=== PATIENT | female | born 1985 | race Caucasian/White ===

== ENCOUNTER → 2020-09-21 | Outpatient (CLI) | payer BC | END | disposition home or self-care (01) | LOC: LABWHC1 15:25 | PROVIDERS: ATTEND Family Medicine | DX: Z20.822 Contact with and (suspected) exposure to COVID-19 (principal) | CPT/HCPCS: U0003; C9803 ==

== ENCOUNTER → 2023-01-14 | Outpatient (CLI) | payer BC ==
--- NOTE | 2023-01-14 21:04 | MR ---
EXAMINATION TYPE: MR cervical spine wo con DATE OF EXAM: 01/14/2023 INDICATION: Patient age: Female; 37 years old; Reason for study: M47.22 CERVICAL SPONDYLOSIS WITH RADICULOPATHY; PHH. Neck pain and numbness into dorothy th sides but left side worse, weakness COMPARISON: 12/26/2022. TECHNIQUE: Multi planar, multi sequence imaging was performed utilizing: T1-weighted, T2-weighted, an d turbo inversion recovery imaging of the cervical spine. IV Contrast: cc none FINDINGS: Alignment: The cervical vertebral bodies have preserved heights. Alignment is within normal limits gi orly patient positioning. Bones: Bone signal is within normal limits. No abnormal bone marrow edema on inversion recovery seque nces. Degeneration changes worse at C4-C5 and C5-C6. Cord: Focus of abnormal cord signal within the right spinal cord just off midline at the level of C5 measuring 1 x 1 mm and extending approximately 3 mm . The remainder of the spinal cord is unremarkabl e with regards to their signal intensity and morphology. Discs: Multilevel disc desiccation is present. C2-C3: No significant disc pathology. The spinal canal is patent. No neural foraminal stenosis. C3-C4: No significant disc pathology. The spinal canal is patent. No neural foraminal stenosis. C4-C5: A disc osteophyte complex is present with mild to moderate spinal canal stenosis. Bilateral f acet and uncovertebral joint arthropathy are present with moderate bilateral neural foraminal stenosi s. C5-C6: A disc osteophyte complex is present with moderate to severe spinal canal stenosis. Bilateral facet and uncovertebral joint arthropathy are present with moderate to severe bilateral neural toney inal stenosis. C6-C7: No significant disc pathology. The spinal canal is patent. No neural foraminal stenosis. C7-T1: No significant disc pathology. The spinal canal is patent. No neural foraminal stenosis. IMPRESSION: 1. C5-C6 moderate to severe spinal canal stenosis with moderate to severe bilateral neural foraminal stenosis. Additionally moderate bilateral neural foraminal stenosis at C4-C5. 2. Focus of abnormal cord signal within the right aspect of the cord just off midline at the level o f C5. Correlate for demyelination. No additional areas of abnormal cord signal. 3. Multilevel disc degeneration with associated osteoarthritic changes worse at C4-C5 and C5-C6.
== END | disposition home or self-care (01) ==
LOC: RADMRIMAIN 19:03
PROVIDERS: ATTEND Orthopaedic Surgery
DX: M47.22 Other spondylosis with radiculopathy, cervical region (principal); M50.121 Cervical disc disorder at C4-C5 level with radiculopathy; M99.71 Connective tissue and disc stenosis of intervertebral foramina of cervical region
CPT/HCPCS: 72141

== ENCOUNTER → 2023-03-02 | Outpatient (CLI) | payer BC | END | disposition home or self-care (01) | LOC: LABPAT 09:41 | PROVIDERS: ATTEND Orthopaedic Surgery | DX: Z01.812 Encounter for preprocedural laboratory examination (principal); Z22.322 Carrier or suspected carrier of Methicillin resistant Staphylococcus aureus; M50.20 Other cervical disc displacement, unspecified cervical region | CPT/HCPCS: 87070 ==

== ENCOUNTER 2023-03-10 06:31 | Day surgery (SDC) | payer BC ==
[~2023-03-10 06:31] MED LIST: ACETAMINOPHEN TAB 500 MG TAB PO PRN; DEXAMETHASONE SOD PHOSPHATE 4 MG/ML 1 ML VIAL IV ONE; GABAPENTIN 300 MG CAP PO PRN; ONDANSETRON 4 MG/2 ML VIAL IVP ONE; ONDANSETRON 4 MG/2 ML VIAL IVP PRN; TRANEXAMIC 1,000 MG/100ML-NACL 1,000 MG in SALINE 1 100ML.BAG IVPB PRN
--- NOTE | 2023-03-10 06:51 | P.HPOR ---
History of Present Illness H&P Date: 03/04/23 .D:Date: 03/04/23 : 04:33pm .T:Title: *[facility]... COPY... Date of :[birth year] R14 Allergies: Age: 37 year Height: 5'4" Weight: 151 lbs BP:/ BMI: 25.92 kg/m2 Occupation: senior business development manager [employer] VAS: 7 CHIEF COMPLAINT: Neck pain DOI: Chronic DOS: N/A Duration of current treatment regiment: 2 to 3 years HISTORY : Xrays New xrays taken in office Trauma or injury No Work-Related No Pain description Aching, burning, increasing Location Diffuse Patient notes that their pain radiates to bilateral upper extremities Activity Modification Yes Hand Dominance Right TREATMENTS COMPLETED: 6 weeks of PT completed? Month and Year of last PT date? Yes How many sessions? 1 Did it help? yes Physician directed home exercise completed? Yes, with mild relief Medications None Alternative interventions Chiropractic:Yes Massage therapy:Yes R.I.C.E:Yes Brace:No Injections No RFA: No SUBJECTIVE: Ms. Finn returns to the office on today for a pre-operative appointment. Patient continues to report experiencing burning and ache-like cervicalpain that has been ongoing since 2013 with no known injury or trauma to indicate an exact onset of their symptoms. In addition to their cervicalpain, they also continue to report that it radiates into the bilateral upper extremities, associatedwith numbness and tingling. The patient states that the left arm sym ptoms are worse than the right. Overall the patient has seen a progressive increase in symptoms since their onset. Ms. Finn symptoms are exacerbated with over head activities or movement or with quick ambulation of the neck, and due to this they note that it is increasingly difficult to complete many of their daily tasks. Patient is having moderate sleep disturbances as well due to their ongoing pain and associated symptoms. Regarding treatments, the patient has previously trialed field care manager, massage therapy, physical therapy, and medication. The patient experienced some relief from field care manager, massage therapy, and physical therapy, but no relief with medication. Patient denies trialing any other modalities at this time. The patient is currently taking Tylenol without resolution of symptoms. Otherwise the patient denies any f/c/sob/cp, no incision concerns, no bladder or bowel retention/incontinence, no perineal numbness/tingling, and ambulates independently. HPI: Ms. Finn presents via phone call on 01/22/23 regarding her MRI of her c spine and her neck pain. She states she continues to have progressive sx down her arms in to her hands and into her middle and ring finger on both sides. She feels it down her arms and shoulders. It gives her HOLCOMB severely and neck pain as well. She feels a pressure in her neck that just does not go away. She denies any bowel or bladder issues. States no gait disturbances but difficulty with strength in her UE b/l. She has a active job and moves 60lbs regularly and it has become more difficult due to the weakness she feels in her arms. She denies any f/c/sob/cp at this time. Ms. Finn presents to the office on 12/26/22 for an evaluation of their chronic neck pain. Patient reports experiencing burning and ache-like cervicalpain that has been ongoing since 2013 with no known injury or trauma to indicate an exact onset of their symptoms. In addition to their cervicalpain, they do report that it radiates into the bilateral upper extremities, asso ciatedwith numbness and tingling. The patient states that the left arm symptoms are worse than the right. Overall the patient has seen a progressive increase in symptoms since their onset. Ms. Finn symptoms are exacerbated with over head activities or movement or with quick ambulation of the neck, and due to this they note that it is increasingly difficult to complete many of their daily task s. Patient is having mild sleep disturbances as well due to their ongoing pain and associated symptoms. Regarding treatments, the patient has previously trialed field care manager, massage therapy, physical therapy, and medication. The patient experienced some relief from field care manager, massage therapy, and physical therapy, but no relief with medication. Patient denies trialing any other modalities at this time. The patient is not taking any medication for her pain at this time. Otherwise the patient denies any f/c/sob/cp, no incision concerns, no bladder or bowel retention/incontinence, no perineal numbness/tingling, and ambulates independently. The patients' past social, medical, family, surgical history, as well as review of systems, have been reviewed. Please refer to the Neurosurgery History and Physical form that has been scanned in to our electronic medical record system. 14 points review of systems completed and as stated in HPI, all other systems reviewed are negative. Social History: E8Elggxra:none P3 Alcohol:none Family History: H3Oxblzv: alive P2 Father: alive Sibling(s): alive Family History: lung cancer Past Medical History: ANXIETY/DEPRESSION Surgical / Procedural History: LUMPECTOMY RIGHT BREAST Current Medications: P1Rx: ALPRAZolam 0.5 mg tablet Ref: 0 Rx: escitalopram 20 mg tablet Ref: 0 Rx: gabapentin 300 mg capsule Ref: 0 Rx: methylPREDNISolone 4 mg tablets in a dose pack Ref: 0 P1 PHYSICAL EXAMINATION: General:Awake, alert, appropriate for age, in no acute distress. HEENT:No unusual neck masses around region of lateral neck triangle, thyroid, supraclavicular groove Heart:Regular rate and rhythm, normal S1, S2 and no murmur/gallop. Lungs:Clear to auscultation bilaterally with no use of accessory muscles. Extremities:Skin warm and dry without acute lesions, coloration, temperature, skin intact, no tenderness or erythema Integument: Hairy patches: ABSENT Dorsal skin dimples: ABSENT Cafe au lait spots: ABSENT Palpation: Please see Pain drawing on Intake sheet for further detail. Midline spinal tenderness: No E6 Cervical Tenderness: No E6 Paralumbar tenderness: No E6 Parathoracic tenderness: No E6 Buttocks tenderness: No E6 Sacroiliac Tenderness:No POSTURAL and MUSCULO-SKELETAL EVALUATION: Coronal Balance: NEUTRAL Recumbent testing: Patient is able to lay flat on back Sagittal Balance: NEUTRAL Shoulder Profile: LEVEL Pelvic Girdle: LEVEL Neck ROM: UNRESTRICTED Lumbar ROM: UNRESTRICTED Shoulder ROM: Symmetrical Hip ROM: Symmetrical Knee ROM: Symmetrical Hands: Normal appearance, symmetrical Feet: Normal appearance, Symmetrical VASCULAR STATUS : LEFT RIGHT Wrist Pulses INTACT INTACT Pedal Pulses (Dors. pedis & post.tibialis) INTACT INTACT Color NORMAL NORMAL Edema Absent Absent NEUROLOGIC EXAMINATION: Mental Status:Awake and alert, fully oriented, with normal attention, concent ration and memory, and fluent, appropriate speech. Cranial Nerves: I: Olfactory not tested. II: Visual acuity normal, no visual field deficit noted with confrontation. III,IV: Normal pupillary reflexes & intact extraocular movements without nystagmus. V,: Intact symmetrical facial sensation. VII: Intact symmetrical facial motor movement VIII: Hearing intact. IX,X: Intact gag, swallow, & normal voice. XI: Sternocleidomastoid, trapezius function intact. XII: Tongue midline with normal movements. L'hermitte's Sign: Negative / absent Spurling'Sign: Absent bilaterally. Cubital percussion test:Absent bilaterally. Peralta-Tinel sign - Carpal region:Absent bilaterally. Straight Leg Raising: Absent bilaterally. Crossed straight leg raise: negative MOTOR EXAM (0-5/5, N/T Muscle appearance:Symmetrical, without signs of atrophy or dystrophy UPPER EXTREMITY RIGHT LEFT Shoulder Abduction 4/5 4/5 Biceps 4/5 4/5 Triceps 4/5 4/5 Wrist Extension 4/5 4/5 Hand Intrinsic 4/5 4/5 Gold Leaf Roller 4/5 4/5 Hand and finger dexterity intact bilaterally?yes Disdiadochokinesis examination negative bilaterally? yes LOWER EXTREMITY RIGHT LEFT Hip Flexion 5/5 5/5 Knee Extension 5/5 5/5 Knee Flexion 5/5 5/5 Dorsiflexion 5/5 5/5 Plantarflexion 5/5 5/5 EHL 5/5 5/5 FHL 5/5 5/5 Toe heel walk / heel-toe walk intact while maintaining satisfactory balance? yes Squatting/straightening w/o assistance to a min of 60 degree knee flexion? yes Single leg stance:intact Trendelenburg sign negative bilaterally REFLEXES(0-4/2, NT)Upper Extremit yLower Extremity Right 2 2 Left Hyperreflexia 2 Pathological Reflexes RI GHT LEFT Peralta's Present Present Clonus Absent Absent Babinski Absent Absent Sensory system (0-4, N/T) Test type RU CLEOPATRA RL LL Joint-Position 2 2 2 2 Vibration 2 2 2 2 Pain & LT sense 2 2 2 2 Dermatomal Deficit: C4-5 C6 None None Gait and Functional Evaluation: Ambulatory aids:Independent Romberg's test:Intact bilaterally Steady Gait RADIOGRAPHIC STUDIE S: MRI scan from 01/14/[address] Spine at [facility]: Jenny reviewed this demonstrates a C4 5 and C5 6 large posterior disc herniations causing moderate to severe central stenosis as well as bilateral foraminal stenosis. There is disc desiccation disc height loss local kyphosis secondary to the collapse of the disc. Anterior osteophytic changes are demonstrated as well. There is beginning myelomalacia changes within the cord posterior to the body of C5. Space available for the cord is less than 7 mm at these levels. The remaining levels are of relatively normal height and hydration and alignment. Occipital cervical C1 2 joints are stable. No fractures or lesions noted. XRay Cervical AP/lateral 2 views taken at [facility] on 12/26/22 of Cervical Spine: imaging reviewed demonstrate spondylosis from C4 through C6 with disc collapse anterior and posterior osteophytic changes. There is fairly severe collapse at C4 5 as well as C5-C6 vertebrae other levels. There is flattening of the normal cervical lordosis secondary to his collapse. There is some facet arthrosis which is noted. No acute fracture or dislocation noted occipital cervical C1 2 joints appear stable. IMPRESSION: It was my pleasure to have seen and examined Michelle. I reviewed the patient's clinical syndrome, physical findings, and imaging studies during the appointment today. It is my impression that the patient has a diagnosis of. 1. C4 5, C5 6 disc herniations with severe stenosis 2.upper extremity radiculopathy with paresthesias 3. upper extremity weakness bilateral 4. Neck pain I outlined the natural course history without intervention and various interventional options. PLAN: Based on my findings I suggest the following course of action: -I discussed treatment options with the patient, including operative and non- operative options, and they have elected to proceed with the following surgical procedure: cervical C4-6 Total Disc Replacement The indications, risks, benefits, and alternatives to surgery were discussed w ith the patient and family at length. Specifically (but not limited to) the risks of infection, stiffness, recurrence of symptoms, need for revision surgery, local numbness, neurovascular injury, and blood clots were discussed. The patient's questions were answered.CALL BACK The decision to proceed was made. Consent will be obtained for the procedure. -Ambulate daily -Take medications as directed -Ice and rest for pain and swelling control. Surgical Procedure Risk Review Michelle Finn is a 37 year old female presenting for evaluation of sudden onset of BILATERAL ARM PAIN WITH PARESTHESIAS NECK PAIN AND HEADACHES. It was my pleasure to have seen and examined Ms. Finn. In our visit today we have had a chance to go over subjective complaints, physical examination findings and treatments, including the natural course history without intervention and various interventional options. The imaging demonstrates c4 5 c5 6 DISC HERNIATION WITH DISC DESICCATION AND CENTRAL AND FORAMINAL STENOSIS MODERATE TO SEVERE WITH MYELOMALACIA CHANGES . On physical exam, Ms. Finn demonstrates BILATERAL UPPER EXTREMITY WEAKNESS BILATERAL UPPER EXTREMITY PARESTHESIAS HEADACHES AND NECK PAIN WITH MOTION . I explained to the patient that as her condition progresses it could cause PROGRESSIVE SYMPTOMS CONTINUED SYMPTOMS OR WORSENING OF SYMPTOMS . At this time, based on the patients imaging and physical exam, I recommend surgery in the form or a: c4 5 c5 6 TOTAL DISC REPLACEMENT . I discussed the risk and benefits of this procedure at length with Ms. Finn. The patient agreed to consider pursuing the procedure mentioned above. Plan: 1. C4-C5 AND C5-C6 TOTAL DISC REPLACEMENT 2. Follow up with PCP for surgical clearance 3. Review of surgical risks and benefits as well as an educational packet on the proposed surgical procedure. Risks: All surgical procedures come with inherent risks, including those related to positioning, anesthesia, intraoperative findings, and postoperative complications. It is important to understand that surgery does not come with any guarantee of a successful outcome as complications and adverse events are always possible. The patient was given a handout in office today discussing the surgical procedure and risks associated with the intervention, both of which were discussed with the patient. These risks include but are not limited to the following: ? Experiencing same, different or even worse symptoms in back, neck, arms, or legs compared to before surgery. ? Requiring further surgery or other forms of treatment presently or at some time in the future at same or other levels of the intended spine surgery. ? On an extreme but fortunately relatively rare basis severe complication such as blindness, stroke, heart attack, temporary and/or permanent nerve injury, paralysis, coma, or may occur, sometimes without known explanation. ? Surgical complications may include but are not limited to risk of infection, fluid accumulation in the surgical dissection site, including a seroma or hematoma, that requires additional surgery, wound drainage, bleeding, new numbness or weakness, vision changes/loss, spinal fluid leakage, non-healing and/or infected incision, headaches, difficulty or inability to swallow, hoarseness, hemopneumothorax, pneumothorax, impotence, retrograde ejaculation, vaginal dryness; injury to nerves, spinal cord, blood vessels, lymphatics or oth er vital organs (i.e., bowel injury, injury to the great vessels); heterotopic bone formation; complications related to the hardware such as screws, rods, cages including misplaced hardware, device failure, instrumentation at the wrong spine level, hardware fracture/breakage, or hardware loosening; vertebral failure of the spinal column above or below the newly placed hardware; retained surgical instrumentations or devices and the need for further surgery. ? Medical risks of the planned spine surgery include but are not limited to generalized Infections to the whole body or local areas outside of the surgical site (sepsis), heart attack, bleeding, anaphylaxis, meningitis, seizure, epilepsy, hearing loss, burn chicas, laceration of the head or other areas of the body, bruising, hypersensitivity of the skin, bladder over distension; allergic reaction; shoulder injury related to positioning; fat, blood and air clots to other areas of the body like heart, lungs, brain; failure of internal organs such as lungs, kidneys, liver and excessive bleeding. If blood transfusions are necessary, note that transfusions may cause intolerance reactions such as anaphylaxis or other complex reactions. Despite best efforts, the results of spine surgery might not heal in terms of bone, soft tissues such as skin, fascia, ligaments, and joints. Additionally, in order to achieve best possible results, spine surgery may be carried out beyond the initially planned levels and involve decompression, fusion including insertion of hardware at levels other than the original intended area of s urgical interest change some portions of the procedure in order to ensure the best possible outcomes. With spine surgery and spinal fusion, there are different off label uses of instrumentation (devices, implants and hardware) as well as biological substances (bone morphogenic proteins, demineralized bone matrix) as well as using extra bone from allograft sources (i.e. cadaver bone) or autograft (iliac crest bone, ribs, or the spine itself). The patient has been given information about these practices and their inherent risks and benefits. [facility] Physician Assistants are medically trained surgical providers who function in the outpatient, inpatient, and operating room setting under the direct supervision of the attending surgeon.They assist in the operating room with direct supervision of the attending surgeons. The patient has had a chance to review all the listed information, has been given print outs detailing this information, and has had all his/her questions answered to their satisfaction. It was my pleasure to have seen and examined Ms. Finn. In our visit today we have had a chance to go over my understanding of our patient's current condition , the natural course history without intervention and various interventional options. Questions were invited and answered, and the patient wishes to proceed as outlined above. I have seen and examined the patient for 25 minutes and we have spent more than 50% of the time in repeat and detailed counseling about the patient's condition, its natural course history with out and as much as can be predicted with surgery and re-review of various surgical treatment options. In conclusion,Ms. Finn and her spouse/partner requested we proceed with the above suggested surgery and are willing to accept risks and limitations of the suggested surgery as nature of the disease process and our best attempts at treatment for the condition. Thank you again for allowing us to be part of your patient's care. Please don't hesitate to contact me if you have any further questions. Follow-up: DEL Post procedure 1month 6wks 3 months 6 months 1 year Patient Education: (Informational booklet, instructions, etc) given at today's appointment: DEL Yes .ED:Patient Education: Y Medications Reviewed: YES In our visit today Ms. Finn and I have had a chance to go over my understanding of the patient's current condition, the natural course history without intervention and various interventional options. Questions were invited and answered, and the patient wishes to proceed as outlined above. I will be sure to keep you updated afterMs. Finn returns here for further follow-up. Thank you again for your referral. Please do not hesitate to contact me if you have any further questions. Signed and authenticated by: JAVON Flood [facility] [address] [place] [id number] This message is confidential, intended only for the named recipient(s) and may contain information that is privileged or exempt from disclosure under applicable law. If you are not the intended recipient(s), you are notified that the dissemination, distribution or copying of this information is strictly prohibited. If you received this message in error, please notify the sender then delete this message. Patient verbalizes understanding of the information discussed. The above note was initiated by Feliep Dale, physician recording assistant department manager for Dr. Daniel Pino. This note has been reviewed by Dr. Pino, who has made his personal changes and impressions for this document. CC: Samantha Neumann NP Past Medical History Past Medical History: Asthma, Osteoarthritis (OA) Additional Past Medical History / Comment(s): sports induced asthma in the past, herniated cervical disc-pain goes down left arm primarily History of Any Multi-Drug Resistant Organisms: None Reported Past Surgical History: Breast Surgery, Tubal Ligation Additional Past Surgical History / Comment(s): benign breasts lumps removed Past Anesthesia/Blood Transfusion Reactions: No Reported Reaction, Family History of Problems w/ Anesthesia Additional Past Anesthesia/Blood Transfusion Reaction / Comment(s): mom has PONV & slow to wake up Smoking Status: Former smoker - Past Family History Mother Family Medical History: No Reported History Medications and Allergies Allergies Allergy/AdvReac Type Severity Reaction Status Date / Time No Known Allergies Allergy Verified 03/03/23 14:01 Physical Examination Osteopathic Statement: *. No significant issues noted on an osteopathic structural exam other than those noted in the History and Physical/Consult.
--- NOTE | 2023-03-10 06:55 | P.PN ---
Progress Note - Text Progress Note Date: 03/10/23 History and Physical UPDATE I have seen and examined the patient and reviewed the history and physical. There appear to be no significant changes in the patient's current medical status as outlined in the current History and Physical.
[2023-03-10] MEDS: LACTATED RINGERS 1,000 ML IV SCH ×4 (07:18→14:33)
[2023-03-10] MEDS ORDERED: PROPOFOL 10 MG/ML 20 ML VIAL IV ONE (08:16)
[2023-03-10] MEDS ORDERED: HYDROmorphone (PF) 1 MG/ML ONE (08:16)
[2023-03-10] MEDS ORDERED: LIDOCAINE 4% LTA KIT (4 ML) TOPICAL ONE (08:16)
[2023-03-10] MEDS ORDERED: PHENYLEPHRINE-0.9% NACL SYG 1,000 MCG/10 ML SYRINGE ONE (08:16)
[2023-03-10] MEDS ORDERED: ROCURONIUM 10 MG/ML (5 ML VIAL) IV ONE (08:16)
[2023-03-10] MEDS ORDERED: TRANEXAMIC 1,000 MG/100ML-NACL PREMIX BAG ONE (08:16)
[2023-03-10] MEDS ORDERED: KETAMINE 10 MG/ML 20 ML VIAL ONE (08:16)
[2023-03-10] MEDS ORDERED: MIDAZOLAM 2 MG/2 ML VIAL ONE (08:16)
[2023-03-10] MEDS ORDERED: SUCCINYLCHOLINE CHLORIDE 200 MG/10 ML VIAL IV ONE (08:16)
[2023-03-10] MEDS ORDERED: LIDOCAINE 2% INJ 20 MG/ML (2 ML VIAL) ONE (08:16)
[2023-03-10] MEDS ORDERED: fentaNYL (PF) 50 MCG/ML 2 ML AMP ONE (08:16)
[2023-03-10] MEDS ORDERED: THROMBIN (BOVINE) 5,000 UNIT VIAL TOPICAL ONE (10:02)
[2023-03-10] MEDS ORDERED: GELATIN SPONGE,ABSORB (LARGE) 1 EACH SPONGE TOPICAL ONE (10:02)
[2023-03-10] MEDS ORDERED: SENNOSIDES-DOCUSATE SODIUM 1 EACH TAB PO PRN (11:06)
[2023-03-10] MEDS ORDERED: CYCLOBENZAPRINE 5 MG TAB PO PRN (11:06)
[2023-03-10] MEDS ORDERED: MAGNESIUM HYDROXIDE 2,400 MG/30 ML CUP PO PRN (11:06)
[2023-03-10] MEDS ORDERED: HYDROcodone/APAP 5-325MG 1 EACH TAB PO PRN (11:06)
[2023-03-10] MEDS ORDERED: HYDROcodone/APAP 7.5-325MG 1 EACH TAB PO PRN (11:09)
--- NOTE | 2023-03-10 11:18 | P.OP ---
Date of Procedure: 03/10/23 Preoperative Diagnosis: 1. C4-5, C5-6 SPONDYLOSIS WITH STENOSIS, HNP 2. UE RADICULOPATHY B/L 3. NECK PAIN Postoperative Diagnosis: 1. C4-5, C5-6 SPONDYLOSIS WITH STENOSIS, HNP 2. UE RADICULOPATHY B/L 3. NECK PAIN Procedure(s) Performed: 1. C4-5, C5-6 TOTAL DISC REPLACEMENT ([id number], [id number]) USE OF IONM Anesthesia: MIRA Surgeon: Daniel Pino Research Epidemiologist #1: Alex Scott (WAS PRESENT AND ASSISTED WITH ALL ASPECTS OF THE CASE FROM POSITION TO CLOSURE) Estimated Blood Loss (ml): 50 IV fluids (ml): 1,000 Urine output (ml): 350 Pathology: none sent Condition: stable Disposition: PACU Indications for Procedure: Michelle Finn is a 37 year old female presenting for evaluation of sudden onset of BILATERAL ARM PAIN WITH PARESTHESIAS NECK PAIN AND HEADACHES. It was my pleasure to have seen and examined Ms. Finn. In our visit today we have had a chance to go over subjective complaints, physical examination findings and treatments, including the natural course history without intervention and various interventional options. The imaging demonstrates c4 5 c5 6 DISC HERNIATION WITH DISC DESICCATION AND CENTRAL AND FORAMINAL STENOSIS MODERATE TO SEVERE WITH MYELOMALACIA CHANGES . On physical exam, Ms. Finn demonstrates BILATERAL UPPER EXTREMITY WEAKNESS BILATERAL UPPER EXTREMITY PARESTHESIAS HEADACHES AND NECK PAIN WITH MOTION . I explained to the patient that as her condition progresses it could cause PROGRESSIVE SYMPTOMS CONTINUED SYMPTOMS OR WORSENING OF SYMPTOMS . At this time, based on the patients imaging and physical exam, I recommend surgery in the form or a: c4 5 c5 6 TOTAL DISC REPLACEMENT . I discussed the risk and benefits of this procedure at length with Ms. Finn. The patient agreed to consider pursuing the procedure mentioned above. Plan: 1. C4-C5 AND C5-C6 TOTAL DISC REPLACEMENT Description of Procedure: C4-5, C5-6 TDR The patient was seen and examined in the preoperative area. All preoperative protocols were followed. Informed consent was obtained risks and benefits of the procedure were discussed at length. Risks including bleeding infection damage to the surrounding tissue and risk of reoperation were discussed with the patient. Risk of anesthesia up to and including was a discussed with the patient. These are outlined in the risk review. They were willing to accept these risks and all the risks of surgery. The patient was given a weight-based dose of antibiotics in the form of 2 g Ancef. The patient was seen and evaluated by the anesthesia team who deemed them fit for surgery. The site was marked, the patient was willing to proceed with the procedure. The patient was transferred to the operative suite by the Department of anesthesia. They were then drifted off to sleep by the department anesthesia and GETA was performed. The patient tolerated this well. Bhardwaj catheter was placed by nursing staff, a-traumatically. Once confirmation of lines and ventilation the patient was transferred to a Supine Ayden table very carefully. All bony prominences including wrists, elbows, axilla, chest, hips, and thighs, and feet were padded very well. Special attention was paid to the genitalia, and these were padded accordingly. SCDs were placed on bilateral lower extremities and were connected. Arms were well padded and placed at their side thumbs up. Shoulder roll was placed and shoulder were gently taped to table. Once in position, again we confirmed good ventilation capabilities and that lines were running appropriately. The patients Cervical spine was then exposed. 1010s were placed outlining the incision site. Standard alcohol was used to clean the incision site and allowed to dry. C-arm was used to bio-catalino the patient and confirm level for incision which was marked with a skin marker. Operative briefing was performed with all teams and everyone in agreement to proceed. The patient was then prepped and draped in a normal sterile fashion. Timeout was then performed, and all parties agreed with the procedure to be performed. Transverse skin incision was then made on the right side of the patients neck 3 cm and dissection taken down to the platysma which was split transversely. Sub platysma flap was made, and interval identified between SCM and medial structures. Omohyoid was visualized and protected. Blunt dissection taken down to the anterior cervical facia which was identified. Blunt prob was then placed and lateral image taken which confirmed levels for operation. These levels were then marked with a bovi. Subperiosteal dissection of the longissimus muscles were then done over these levels identifying uncovertebral joints bilaterally. Retractor was then placed deep to these muscles and held in place with a bed arm. [place] pins were placed into C4 and C5 and gentle parallel distraction taken out over the levels. Cookie rongure used to remove disc material. Operating microscope brought in for visualization. Complete discectomy performed at this level with curette, rongure and pituitary. High speed ranulfo used to remove osteophytes anteriorly and posteriorly until PLL was identified. 6-0 up curette then used to identify the canal and resect the PLL. 2-0 and 3-0 Kerrison used then to remove PLL and disc herniation and performed b/l foraminotomies. Once good decompression accomplished, meticulous hemostasis was performed. Sizers were then placed under lateral fluoroscopy until the desired height and alignment. A 6 trial was then placed and secured. Distraction removed for cuts. AP and lateral image confirmed central placement. Chisel was then sent over the trial to create the keel cuts. Trial was then removed and gentle distraction placed again. Further clean up of the endplates done as well as foramen and decompression. Disc space was irrigated thoroughly. Final implant was then placed under lateral image to match the keel cuts and was placed optimally on AP and lateral imaging. Once inplace the implant was tested and was secured. Motors run before and after implant placement were stable. The wound bed was irrigated. Distraction pins removed and bone wax placed in their void. Bone wax placed on any bleeding bony surfaces. Surgicel then placed deep in the wound and retractors removed after inspection without injury. Final AP and lateral images confirmed good placement of implant with good height and alignment resotration. Attention was then drawn to the C5-6 level. [place] pins were placed into C5 and C6 and gentle parallel distraction taken out over the levels. Cookie rongure used to remove disc material. Operating microscope brought in for visualization. Complete discectomy performed at this level with curette, rongure and pituitary. High speed ranulfo used to remove osteophytes anteriorly and posteriorly until PLL was identified. 6-0 up curette then used to identify the canal and resect the PLL. 2-0 and 3-0 Kerrison used then to remove PLL and disc herniation and performed b/l foraminotomies. Once good decompression accomplished, meticulous hemostasis was performed. Sizers were then placed under lateral fluoroscopy until the desired height and alignment. A 6 trial was then placed and secured. Distraction removed for cuts. AP and lateral image confirmed central placement. Chisel was then sent over the trial to create the keel cuts. Trial was then removed and gentle distraction placed again. Further clean up of the endplates done as well as foramen and decompression. Disc space was irrigated thoroughly. Final implant was then placed under lateral image to match the keel cuts and was placed optimally on AP and lateral imaging. Once inplace the implant was tested and was secured. Motors run before and after implant placement were stable. The wound bed was irrigated. Distraction pins removed and bone wax placed in their void. Bone wax placed on any bleeding bony surfaces. Surgicel then placed deep in the wound and retractors removed after inspection without injury. Final AP and lateral images confirmed good placement of implant with good height and alignment resotration. The wound was then irrigated copiously with NSS. Surgicel placed deep in the wound. Layered closure then performed with 3-0 Vicryl in the platysma and sub- Q tissue. 4-0 Strata fix in the subcuticular tissue. The wound was then cleaned, and dried and skin glue placed. Once glue dried an Opifoam was placed. The patient was then transferred back to their hospital bed a-traumatically. The drain continued to hold suction. They were placed in a soft collar. They were then awakened by the department of anesthesia having tolerated the procedure well without complications.
--- NOTE | 2023-03-10 11:21 | XR ---
EXAMINATION TYPE: XR cervical spine limited, FL guidance operating room DATE OF EXAM: 03/10/2023 CLINICAL HISTORY: CERVICAL FUSION TECHNIQUE: Multiple intraoperative fluoroscopic images are obtained preoperatively and postoperativel y. COMPARISON: None. FINDINGS: Localization device is noted at the C5-6 interspace anteriorly. Postoperative evaluation de monstrates intervertebral prosthesis at the C4-5 and C5-6 levels. Fluoroscopic time 43 seconds, DAP=. [id number] IMPRESSION: As above
[2023-03-10] MEDS: HYDROmorphone 0.5 MG/0.5 ML SYRINGE IVP PRN ×3 (11:38→13:18)
--- NOTE | 2023-03-10 11:46 | P.PN ---
Progress Note - Text Progress Note Date: 03/10/23 Postop: . Patient seen and examined they are doing well. Their pain is under control at this time. They are moving all 4 extremities without any issues. Vital signs are stable.. They are currently recovering and will be transferred to the floor once deemed stable by the PACU team and anesthesiologist. No Other issues at this time they deny fever chills shortness of breath or chest pain. [C collar in place, well fitting] [Medical management pending] [Continue with intravenous fluids, pain medication, muscle relaxers, home medication] [Soft diet to start to advance as tolerated] We will evaluate the patient in the morning.
[2023-03-10] MEDS: ACETAMINOPHEN TAB 325 MG TAB PO SCH ×2 (14:35→17:21)
[2023-03-10] MEDS: HYDROmorphone 1 MG/ML 1 ML SYRINGE IVP PRN ×3 (14:58→23:37)
[2023-03-10] MEDS ORDERED: ALPRAZolam 0.5 MG TAB PO PRN (16:29)
--- NOTE | 2023-03-10 16:31 | P.CONS ---
History of Present Illness - Reason for Consult Consult date: 03/10/23 - History of Present Illness Patient is a 37-year-old female anxiety and cervical spondylosis with stenosis who presents for a cervical disc replacement. Patient seen after surgery. Patient currently states that she is very uncomfortable. She stated that she is also having a lot of neck pain. Patient states that she only takes Xanax at home. She denies any other acute complaints. Review of systems: 10 ROS reviewed and are negative except as noted in HPI Physical exam General: [Alert and oriented, well nourished, no acute distress]. Eye: [PERRL, EOMI, normal conjunctiva]. HENT: [Normocephalic, clear tympanic membranes, normal hearing, moist oral mucosa, no scleral icterus, no sinus tenderness]. Neck: [C-collar, restricted range of motion of the cervical spine]. Lungs: [Clear to auscultation and percussion, non-labored respiration]. Heart: [Normal rate, regular rhythm, no murmur, gallop or edema]. Abdomen: [Soft, non-tender, non-distended, normal bowel sounds, no masses]. Musculoskeletal: [Normal range of motion and strength, no tenderness or swelling]. Skin: [Skin is warm, dry and pink, no rashes or lesions]. Neurologic: [Awake, alert, and oriented X3, CN II-XII intact]. Psychiatric: [Cooperative, appropriate mood and affect]. Assessment and plan Anxiety Status post cervical total disc replacement I will resume patient's Xanax. Pain control and rest of the management as per primary team. Thank you for the consult. We'll follow along with you. Past Medical History Past Medical History: Asthma, Osteoarthritis (OA) Additional Past Medical History / Comment(s): sports induced asthma in the past, herniated cervical disc-pain goes down left arm primarily History of Any Multi-Drug Resistant Organisms: None Reported Past Surgical History: Breast Surgery, Tubal Ligation Additional Past Surgical History / Comment(s): benign breasts lumps removed Past Anesthesia/Blood Transfusion Reactions: No Reported Reaction, Family History of Problems w/ Anesthesia Additional Past Anesthesia/Blood Transfusion Reaction / Comm: mom has PONV & slow to wake up Past Psychological History: Anxiety Smoking Status: Former smoker Past Alcohol Use History: Occasional Additional Past Alcohol Use History / Comment(s): quit smoking 10+ yrs. ago, smoked 10 yrs. <ppd Past Drug Use History: Marijuana Additional Drug Use History / Comment(s): occasionally smokes - Past Family History Mother Family Medical History: No Reported History Medications and Allergies Home Medications Medication Instructions Recorded Confirmed Type ALPRAZolam [Xanax] 0.5 mg PO DAILY PRN 03/10/23 03/10/23 History Allergies Allergy/AdvReac Type Severity Reaction Status Date / Time No Known Allergies Allergy Verified 03/03/23 14:01 Physical Exam Osteopathic Statement: *. No significant issues noted on an osteopathic structural exam other than those noted in the History and Physical/Consult. Vitals: Vital Signs Temp Pulse Resp BP Pulse Ox 03/10/23 13:30 62 16 106/65 98 03/10/23 13:10 66 17 119/71 97 03/10/23 12:53 70 15 108/63 97 03/10/23 12:35 63 16 107/64 97 03/10/23 12:20 69 16 109/60 99 03/10/23 12:05 64 16 112/64 99 03/10/23 11:50 59 L 16 128/71 97 03/10/23 11:35 72 18 119/67 99 03/10/23 11:20 70 16 116/56 100 03/10/23 11:07 97.6 F 69 13 120/65 99 03/10/23 07:04 98.2 F 66 16 110/56 97 Intake and Output 03/10/23 03/10/23 03/10/23 06:59 14:59 22:59 Intake Total 1250 Output Total 300 Balance 950 Intake: IV 1250 Output: Urine 250 Estimated Blood Loss 50 Other: Weight 64.6 kg
[2023-03-10] MEDS: ONDANSETRON 4 MG/2 ML VIAL IVP PRN (17:24)
--- NOTE | 2023-03-10 17:39 | CT ---
EXAMINATION TYPE: CT cervical spine wo con CT DLP: 290.5 mGycm, Automated exposure control for dose reduction was used. DATE OF EXAM: 03/10/2023 4:58 PM COMPARISON: 03/10/2023 . CLINICAL INDICATION:Female, 37 years old with history of s/p C4-C6 disk replacement; PHH, s/p C4-C6 d isk replacement TECHNIQUE: Axial CT images from the skull base to the inferior aspect of T2 we obtained without intra venous contrast. Coronal and sagittal reformatted images were also reviewed. Contrast used: mL of , (if blank None) Oral contrast used: (if blank None) FINDINGS: Postsurgical changes to the spine with hardware at C4-C5 and C5-C6 disc spaces. Hardware appears in a ppropriate position. No evidence of fracture. Subcutaneous gas and surgical clips are present. Mild paranasal sinus disease. The airway is patent. IMPRESSION: Postsurgical changes without evidence for immediate postop complication.
[2023-03-10] MEDS ORDERED: METOCLOPRAMIDE 5 MG/ML 2 ML VIAL IVP STA (21:34)
[2023-03-10] MEDS: INDOMETHACIN 25 MG CAP PO SCH (22:22)
[2023-03-11] MEDS: ACETAMINOPHEN TAB 325 MG TAB PO SCH ×3 (00:31→13:40)
[2023-03-11] MEDS: HYDROmorphone 0.5 MG/0.5 ML SYRINGE IVP PRN ×2 (03:07→05:44)
[2023-03-11] MEDS: ONDANSETRON 4 MG/2 ML VIAL IVP PRN (08:22)
[2023-03-11] MEDS ORDERED: ONDANSETRON 4 MG/2 ML VIAL IVP PRN (08:32)
[2023-03-11] MEDS ORDERED: CAFFEINE-SODIUM BENZOATE 1,000 MG in SODIUM CHLORIDE 0.9% 1,000 ML IVPB ONE (09:00)
[2023-03-11] MEDS: INDOMETHACIN 25 MG CAP PO SCH (10:11)
--- NOTE | 2023-03-11 10:12 | P.PN ---
Subjective Progress Note Date: 03/11/23 Principal diagnosis: 1. C4 5, C5 6 disc herniations with severe stenosis 2. upper extremity radiculopathy with paresthesias 3. upper extremity weakness bilateral 4. Neck pain Patient seen and examined at the bedside. Patient is resting currently in bed. She does have complaint of increased pain in the anterior and posterior cervical spine, increased nausea, and headache. Medications have been adjusted. Surgical incision to the anterior cervical spine is clean dry and intact, soft collar is in place. Patient to work with PT as tolerated today. Patient has been afebrile, and denies chest pain. Objective - Vital Signs Vital signs: Vital Signs Temp 98.1 F 03/11/23 00:15 Pulse 89 03/11/23 00:15 Resp 18 03/11/23 00:15 BP 109/60 03/11/23 00:15 Pulse Ox 90 L 03/11/23 00:15 FiO2 Intake & Output 03/10/23 03/11/23 03/11/23 18:59 06:59 18:59 Intake Total 1250 Output Total 300 Balance 950 Weight 64.6 kg Intake: IV 1250 Output: Urine 250 Estimated Blood Loss 50 Other: Voiding Method Toilet # Voids 2 2 - Exam Physical Examination General: The patient is awake and alert, in no acute distress Skin: Skin is warm and dry with no obvious rashes or lesions. Surgical incision to the anterior cervical spine, dressing is clean dry and intact with soft collar present Eye: Pupils are equal, round and reactive to light, extra-ocular movements are intact; there is normal conjunctiva bilaterally. Neck: The neck is supple, there is mild tenderness and limited range of motion secondary to pain and stiffness from surgical procedure Cardiovascular: There is a regular rate and rhythm. No murmur, rub or gallop is appreciated. Respiratory: Lungs are clear to auscultation, respirations are non-labored, breath sounds are equal. Gastrointestinal: Soft, non-distended, non-tender abdomen. Back: There is no tenderness to palpation in the midline, paralumbar, parathoracic or buttocks region. There is no obvious deformity . Musculoskeletal: Muscle strength in all major muscle groups of bilateral upper extremities 4/5, bilateral lower extremities 5/5. Neurological: CN 2-12 intact. There are no obvious motor or sensory deficits. Movement and coordination equal and intact. Sensory exam to light touch intact C5-T1 and intact from L2-S1. Reflexes 2/4 in bilateral upper and lower extremities. Negative Hoffmans, babinski, and clonus signs. Psychiatric: Cooperative, appropriate mood & affect, normal judgment. Assessment and Plan Assessment: Postop day 1: C4-C5, C5-C6 total disc replacement 1. C4 5, C5 6 disc herniations with severe stenosis 2. upper extremity radiculopathy with paresthesias 3. upper extremity weakness bilateral 4. Neck pain Plan: -Appreciate payroll consultant and team management. -IV Tylenol, IV caffeine ordered, and increased duration of IV Zofran -Activity: Ambulate QID, OOB all meals, up and about, limit lifting bending twisting to less than 5 lbs. Use walker or cane if needed for stability. -Daily PT/OT, increase ambulation strength and balance. -Soft cervical collar at all times until follow up, not needed in bed or chair -Pain control: Adequate at this time -Meds: reviewed -GI ppx: senna, Miralax -DC rojas when up and about, bedside commode if needed -DVT PPX: OK to restart Heparin tonight -Hygiene: Shower today. Maintain dressing clean and dry. -Encourage IS 10x/hr -Dispo: Anticipate discharge home tomorrow *I reviewed and discussed this case with my attending Dr. Pino, whom has reviewed this chart and films and is in agreement with assessment and plan of care as outlined above. I have personally seen and examined the patient, performed the documentation and the assessment and plan as written. Number of minutes spent on the visit: 15m.
[2023-03-11] MEDS: ACETAMINOPHEN IV (For NPO) 1,000 MG in EMPTY BAG 1 BAG IVPB SCH ×2 (10:42→15:56)
--- NOTE | 2023-03-11 11:20 | P.DS ---
Providers Expected date of discharge: 03/11/23 Attending physician: Daniel Pino DO Consults: 03/10/23 11:08 Consult Physician Routine Consulting Provider: Jose De Jesus Schroeder Consult Reason/Comments: medical management Do you want consulting provider notified?: Yes Primary care physician: Samantha [facility] Course: Date of admission: 03/10/2023 Date of discharge: 03/11/2023 Admission diagnosis: 1. C4-5, C5-6 SPONDYLOSIS WITH STENOSIS, HNP 2. UE RADICULOPATHY B/L 3. NECK PAIN Discharge diagnosis: Same Attending physician: Dr. Pino Surgical procedures: 1. C4-5, C5-6 TOTAL DISC REPLACEMEN Brief history: Patient is a 37-year-old female with a history of C4-C5, C5-C6 spondylosis with stenosis; neck pain; upper extremity radiculopathy. At this point patient has failed conservative treatment measures and has opted to proceed with a elective C4-C6 total disc replacement. Hospital course: Details of patient's surgery can be found in operative report. Patient tolerated the procedure well and was subsequently transported to orthopedic floor. Patient's orthopeidc and medical care was provided daily. Patient had daily laboratory tests performed for evaluation of overall blood counts. Patient had daily physical therapy to include strengthening range of motion as well as education with walker ambulation. Patient was noted to have a relatively uneventful postoperative course. Patient reported satisfactory pain control with oral pain medications by postoperative day 1. Patient showed satisfactory progress with physical therapy. Patient moved steadily through the program and had no difficulty meeting the goals by postoperative day 1. Given patient's otherwise satisfactory course and having met physical therapy goals, plan is to discharge patient home on postoperative day 1. Discharge condition/disposition: Patient will be discharged home in stable condition. Discharge medications: Instructions are given on resumption of patient's normal daily medications per primary care recommendation, in addition patient will be prescribed with [place]; Indocin; Flexeril; gabapentin; Duricef; senna. Spine Discharge and Recovery Instructions Keep incision clean, dry, intact. I'll showering, cover dressing with Saran wrap. It is okay to remove dressing beginning 03/15/2023. Once dressing is removed, it is okay to shower directly over incision. Date of Surgery: 03/10/2023 Diagnosis: 1. C4-5, C5-6 SPONDYLOSIS WITH STENOSIS, HNP 2. UE RADICULOPATHY B/L 3. NECK PAIN Procedure(s) Performed: 1. C4-5, C5-6 TOTAL DISC REPLACEMEN Medications: See medication list All medication refills should be obtained through your primary care doctor or your clinic spine surgeon. Please discuss prescription refills at your follow up appointment. Do not call the hospital for medication refills. Dressing: Leave your dressing in place for a total of 5 days post operatively. Then you may remove your dressing and leave open to air. Keep the area clean and if not able to keep area clean, then cover with sterile gauze and tape. Showering: You may shower 3 days after your procedure allowing soap and water to run over incision. Do not scrub. Do not soak. Blot dry. Follow up: Please confirm a follow up appointment with your surgeon 3 weeks post operatively. Please make an appointment to follow up with your PCP in 1-2 weeks after surgery for evaluation 3 phase, 3-week plan POST OP WEEKS 1-3 1. Lifting/carrying/pushing/pulling limited to less than 5 pounds. 2. Do not sit for longer than 15 minutes at one time. Get up and walk around. Prolonged sitting is NOT advised. If you lay down, see if you can tolerate laying down on you front (belly side) 3. Walk for periods of 15 minutes = 1 mile but no longer; do it multiple times times each day. 4. Ice your low back after activity. POST OP WEEKS 3-6 1. Lifting limited to less than 20 pounds. 2. Do not sit for longer than 30 minutes at a time. Frequently change positions. Use a sit-to stand workstation or take frequent breaks from sitting if you have returned to work. 3. Walk for 30 minutes each day. If possible, do these three or more times a day POST OP WEEKS 6+ At your 6-week appointment we will give you a physical therapy referral to focus on a core stabilization and strengthening program. You should also work on leg & buttock strengthening, hamstring & quadriceps stretching, and continue a low impact aerobic activity program such as swimming, walking, or riding a stationary bicycle. During the initial 6 weeks after your surgery, you are at the highest risk of re-injuring your spine. You should generally avoid BLTs (bending, lifting and twisting combination motions) and follow the above guidelines to reduce the chance of reinjury. You can anticipate post op appointments in our office at approximately 3 weeks and 6 weeks after your surgery. INCISION CARE: If your incision is not draining you do NOT need to cover it with a dressing. Keep your incision clean, dry and intact. In most cases, we apply skin glue, antonia or sutures to the incision at the time of surgery. This will be like a crust or have the appearance of a scab and will fall off in time on its own. The stitches or antonia need to be removed at 3 weeks post op appointment. You may begin to shower 3 days after surgery (this allows the glue to prieto well). However, please avoid scrubbing the incision site or peeling off any of the skin glue. This will ensure optimal healing of your incision. Also, during this time avoid soaking the incision area in water - this includes swimming pools, hot tubs or baths. No ointments, lotions or oils on the incision until your surgeon allows. Leave antonia, sutures or glue in place. Neurological dysfunction that comes on suddenly can also be a sign of a stroke. Below some common symptoms of a stroke are listed: B - balance difficulty such as sudden onset walking or leaning to one side - NEW E - eye problem such as sudden double vision or trouble seeing on one side - NEW F - Facial weakness or numbness on one side - NEW A - Arm or leg weakness or numbness on one side - NEW S - Slurred speech or difficulty with word finding - NEW T - Time is BRAIN! Call 911 as soon as you recognize these symptoms Diet: Consume a regular diet rich in vegetables and lean protein such as chicken or fish. You should consume in a ratio of approximately 20% fats|40% carbohydrates|40%protein. Vegetables, sweet potatoes, brown rice or quinoa are examples of good carbohydrates. Chips, white bread, cookies and sweets/sugar are examples of bad carbohydrates. Limit your bad carbs, go wild with good carbs. "Life's Simple 7" Guidelines as per [place] [employer] These will help you reclaim your life after surgery and cell tender helper in your recovery, keeping in mind your restrictions. (1) Get Active. Physical activity can help people lose weight, control high blood pressure and cholesterol, feel emotionally better, and sleep better. (2) Control Cholesterol. Avoid a diet high in saturated fat, trans fat, & cholesterol. Limit whole milk & cream, ice cream, butter, egg yolks, processed meats (like sausage and hot dogs), and fatty meats. Choose healthy foods that are low in saturated fat, trans fat and cholesterol which include: Fruits and vegetables, fiber rich grain products (like whole grain pasta and brown rice), lean meat such as chicken, fish, nuts, seeds, and legumes. (3) Eat Better. Eat small portions. Shop at the grocery with a list and do not stray from it. Tips for a healthy diet include: Limit sodium intake to less than 1500mg daily, avoid prepackaged, processed, and fast foods, choose a diet rich in fruits, vegetables, and whole grain, high fiber foods, and limit saturated & cholesterol in your diet. (4) Manage Blood Pressure. If you have high blood pressure, you should have a cuff at home so that you can check your blood pressure regularly. Be sure you have a good cuff. An arm one is generally better than a wrist one. Bring the cuff to a doctor's appointment to validate that the measurements that your cuff are taking are accurate. Take your blood pressure twice daily when you are sitting down and relaxing. Record the numbers in a log and bring this log with you to your doctors' appointments. (5) Lose Weight if your BMI is above 25. A healthy BMI is between 19-25. To calculate Your BMI, you may use a Standard BMI Calculator on the NIH BMI website: <www.nhlbi.nih.gov/guidelines/obesity/BMI/bmicalc.htm>. Weigh oneself daily. If you are overweight, set a goal to lose weight. A pound a week loss if needed is a good target. (6) Reduce Blood Sugar. Limit foods and liquids with "added sugars." (Added sugars include sucrose, fructose, glucose, maltose, dextrose, high fructose corn syrup, corn syrup, concentrated fruit juice and honey). (7) Stop Smoking. If you smoke, quitting smoking is one of the best things that you can do for your health. Smoking increases your risk of heart attack, stroke, and peripheral vascular disease, which is a build-up of plaque in your arteries. Please discard all the cigarettes and lighters in your house. Have a plan for what you will do when you have the urge to smoke. Direct and second- hand smoke shortens your life as well as the lives of your family, friends and others around you. For your health and the health of those around you, please consider quitting! Proper Bending Body Mechanics: Maintain a wide stance with one foot slightly in front of the other. Keep your back straight. Bend utilizing the strength in your hips and knees. Do not bend at the waist. Maintain the lifted object at your waist-level close to your body. Avoid lifting weight that causes immediately pain or pain anywhere in the body afterwards. Smoking/Nicotine If there was ever one thing that you could do to increase your overall health, decrease your risk of cardiovascular problems by about 39% the second you make the choice, it is to STOP SMOKING. Your body's most instant gratification is the second you stop smoking. We have all heard the studies, read the articles but it is true, smoking is extremely bad for your overall health, and moreover it is detrimental to your bone health. Nicotine, IN ANY FORM, kills bone cells, prevents your body from healing fractures, and significantly prolongs healing after surgery. In spine surgery specifically, it increases your risk of not healing your bones to create a fusion and increases your risk of having a revision surgery due to this up to 60%. I know it is hard. I know it feels impossible. But there are ways. Take control of your life. We are here to help you through it. And when you are ready, ask us and we can direct you to help if you desire. Use the START Plan to Quit Smoking (please visit the Helpguide.org website listed below for more information): S = Set a quit date. Choose a date within the next 2 weeks, so you have enough time to prepare without losing your motivation to quit. If you mainly smoke at work, quit on the weekend, so you have a few days to adjust to the change. T = Tell family, friends, and co-workers that you plan to quit. Let your friends and family in on your plan to quit smoking and tell them you need their support and encouragement to stop. Look for a quit daniel who wants to stop smoking as well. You can help each other get through the rough times. A = Anticipate and plan for the challenges you'll face while quitting. Most people who begin smoking again do so within the first 3 months. You can help yourself make it through by preparing ahead for common challenges, such as nicotine withdrawal and cigarette cravings. R = Remove cigarettes and other tobacco products from your home, car, and work. Throw away all your cigarettes (no emergency pack!), lighters, ashtrays, and matches. Wash your clothes and freshen up anything that smells like smoke. Shampoo your car, clean your drapes and carpet, and steam your furniture. T = Talk to your doctor about getting help to quit. Your doctor can prescribe medication to help with withdrawal and suggest other alternatives. If you can't see a doctor, you can get many products over the counter at your local pharmacy or grocery store, including the nicotine patch, nicotine lozenges, and nicotine gum. Resources for Quitting Smoking: <https://www.[place].gov/documents/[facility]/Quit_Tobacco_Resources_for_patients_313 480_7.pdf> Supplementation: Take recommended dosages of Vitamin D and Calcium to help fortify your bones and help them to heal. See your health maintenance packet for dosages and recommended levels. DVT/VTE prophylaxis: You will be given compression stockings from the hospital. Wear these daily for the first two weeks after surgery. You may take them off at night. You may be prescribed a medication to help thin your blood. Take this as directed. If you are not prescribed this medication, early and frequent ambulation has been shown to be the best prophylaxis to deep vein thrombosis and sequelae related to this event. Assessment: Diagnosis: 1. C4-5, C5-6 SPONDYLOSIS WITH STENOSIS, HNP 2. UE RADICULOPATHY B/L 3. NECK PAIN Procedures: 1. C4-5, C5-6 TOTAL DISC REPLACEMEN Patient Condition at Discharge: Good Plan - Discharge Summary Discharge Rx Participant: No New Discharge Prescriptions: No Action ALPRAZolam [Xanax] 0.5 mg PO DAILY PRN PRN Reason: Anxiety Discharge Medication List ALPRAZolam [Xanax] 0.5 mg PO DAILY PRN 03/10/23 [History] Follow up Appointment(s)/Referral(s): Daniel Pino DO [Doctor of Osteopathic Medicine] - 03/25/23 10:15 am Activity/Diet/Wound Care/Special Instructions: Spine Discharge and Recovery Instructions Keep incision clean, dry, intact. I'll showering, cover dressing with Saran wrap. It is okay to remove dressing beginning 03/15/2023. Once dressing is removed, it is okay to shower directly over incision. Date of Surgery: 03/10/2023 Diagnosis: 1. C4-5, C5-6 SPONDYLOSIS WITH STENOSIS, HNP 2. UE RADICULOPATHY B/L 3. NECK PAIN Procedure(s) Performed: 1. C4-5, C5-6 TOTAL DISC REPLACEMEN Medications: See medication list All medication refills should be obtained through your primary care doctor or your clinic spine surgeon. Please discuss prescription refills at your follow up appointment. Do not call the hospital for medication refills. Dressing: Leave your dressing in place for a total of 5 days post operatively. Then you may remove your dressing and leave open to air. Keep the area clean and if not able to keep area clean, then cover with sterile gauze and tape. Showering: You may shower 3 days after your procedure allowing soap and water to run over incision. Do not scrub. Do not soak. Blot dry. Follow up: Please confirm a follow up appointment with your surgeon 3 weeks post operatively. Please make an appointment to follow up with your PCP in 1-2 weeks after surgery for evaluation 3 phase, 3-week plan POST OP WEEKS 1-3 1. Lifting/carrying/pushing/pulling limited to less than 5 pounds. 2. Do not sit for longer than 15 minutes at one time. Get up and walk around. Prolonged sitting is NOT advised. If you lay down, see if you can tolerate laying down on you front (belly side) 3. Walk for periods of 15 minutes = 1 mile but no longer; do it multiple times times each day. 4. Ice your low back after activity. POST OP WEEKS 3-6 1. Lifting limited to less than 20 pounds. 2. Do not sit for longer than 30 minutes at a time. Frequently change positions. Use a sit-to stand workstation or take frequent breaks from sitting if you have returned to work. 3. Walk for 30 minutes each day. If possible, do these three or more times a day POST OP WEEKS 6+ At your 6-week appointment we will give you a physical therapy referral to focus on a core stabilization and strengthening program. You should also work on leg & buttock strengthening, hamstring & quadriceps stretching, and continue a low impact aerobic activity program such as swimming, walking, or riding a stationary bicycle. During the initial 6 weeks after your surgery, you are at the highest risk of re-injuring your spine. You should generally avoid BLTs (bending, lifting and twisting combination motions) and follow the above guidelines to reduce the chance of reinjury. You can anticipate post op appointments in our office at approximately 3 weeks and 6 weeks after your surgery. INCISION CARE: If your incision is not draining you do NOT need to cover it with a dressing. Keep your incision clean, dry and intact. In most cases, we apply skin glue, antonia or sutures to the incision at the time of surgery. This will be like a crust or have the appearance of a scab and will fall off in time on its own. The stitches or antonia need to be removed at 3 weeks post op appointment. You may begin to shower 3 days after surgery (this allows the glue to prieto well). However, please avoid scrubbing the incision site or peeling off any of the skin glue. This will ensure optimal healing of your incision. Also, during this time avoid soaking the incision area in water - this includes swimming pools, hot tubs or baths. No ointments, lotions or oils on the incision until your surgeon allows. Leave antonia, sutures or glue in place. Neurological dysfunction that comes on suddenly can also be a sign of a stroke. Below some common symptoms of a stroke are listed: B - balance difficulty such as sudden onset walking or leaning to one side - NEW E - eye problem such as sudden double vision or trouble seeing on one side - NEW F - Facial weakness or numbness on one side - NEW A - Arm or leg weakness or numbness on one side - NEW S - Slurred speech or difficulty with word finding - NEW T - Time is BRAIN! Call 911 as soon as you recognize these symptoms Diet: Consume a regular diet rich in vegetables and lean protein such as chicken or fish. You should consume in a ratio of approximately 20% fats|40% carbohydrates|40%protein. Vegetables, sweet potatoes, brown rice or quinoa are examples of good carbohydrates. Chips, white bread, cookies and sweets/sugar are examples of bad carbohydrates. Limit your bad carbs, go wild with good carbs. "Life's Simple 7" Guidelines as per [place] [employer] These will help you reclaim your life after surgery and cell tender helper in your recovery, keeping in mind your restrictions. (1) Get Active. Physical activity can help people lose weight, control high blood pressure and cholesterol, feel emotionally better, and sleep better. (2) Control Cholesterol. Avoid a diet high in saturated fat, trans fat, & cholesterol. Limit whole milk & cream, ice cream, butter, egg yolks, processed meats (like sausage and hot dogs), and fatty meats. Choose healthy foods that are low in saturated fat, trans fat and cholesterol which include: Fruits and vegetables, fiber rich grain products (like whole grain pasta and brown rice), lean meat such as chicken, fish, nuts, seeds, and legumes. (3) Eat Better. Eat small portions. Shop at the grocery with a list and do not stray from it. Tips for a healthy diet include: Limit sodium intake to less than 1500mg daily, avoid prepackaged, processed, and fast foods, choose a diet rich in fruits, vegetables, and whole grain, high fiber foods, and limit saturated & cholesterol in your diet. (4) Manage Blood Pressure. If you have high blood pressure, you should have a cuff at home so that you can check your blood pressure regularly. Be sure you have a good cuff. An arm one is generally better than a wrist one. Bring the cuff to a doctor's appointment to validate that the measurements that your cuff are taking are accurate. Take your blood pressure twice daily when you are sitting down and relaxing. Record the numbers in a log and bring this log with you to your doctors' appointments. (5) Lose Weight if your BMI is above 25. A healthy BMI is between 19-25. To calculate Your BMI, you may use a Standard BMI Calculator on the NIH BMI website: <www.nhlbi.nih.gov/guidelines/obesity/BMI/bmicalc.htm>. Weigh oneself daily. If you are overweight, set a goal to lose weight. A pound a week loss if needed is a good target. (6) Reduce Blood Sugar. Limit foods and liquids with "added sugars." (Added sugars include sucrose, fructose, glucose, maltose, dextrose, high fructose corn syrup, corn syrup, concentrated fruit juice and honey). (7) Stop Smoking. If you smoke, quitting smoking is one of the best things that you can do for your health. Smoking increases your risk of heart attack, stroke, and peripheral vascular disease, which is a build-up of plaque in your arteries. Please discard all the cigarettes and lighters in your house. Have a plan for what you will do when you have the urge to smoke. Direct and second- hand smoke shortens your life as well as the lives of your family, friends and others around you. For your health and the health of those around you, please consider quitting! Proper Bending Body Mechanics: Maintain a wide stance with one foot slightly in front of the other. Keep your back straight. Bend utilizing the strength in your hips and knees. Do not bend at the waist. Maintain the lifted object at your waist-level close to your body. Avoid lifting weight that causes immediately pain or pain anywhere in the body afterwards. Smoking/Nicotine If there was ever one thing that you could do to increase your overall health, decrease your risk of cardiovascular problems by about 39% the second you make the choice, it is to STOP SMOKING. Your body's most instant gratification is the second you stop smoking. We have all heard the studies, read the articles but it is true, smoking is extremely bad for your overall health, and moreover it is detrimental to your bone health. Nicotine, IN ANY FORM, kills bone cells, prevents your body from healing fractures, and significantly prolongs healing after surgery. In spine surgery specifically, it increases your risk of not healing your bones to create a fusion and increases your risk of having a revision surgery due to this up to 60%. I know it is hard. I know it feels impossible. But there are ways. Take control of your life. We are here to help you through it. And when you are ready, ask us and we can direct you to help if you desire. Use the START Plan to Quit Smoking (please visit the Helpguide.org website listed below for more information): S = Set a quit date. Choose a date within the next 2 weeks, so you have enough time to prepare without losing your motivation to quit. If you mainly smoke at work, quit on the weekend, so you have a few days to adjust to the change. T = Tell family, friends, and co-workers that you plan to quit. Let your friends and family in on your plan to quit smoking and tell them you need their support and encouragement to stop. Look for a quit daniel who wants to stop smoking as well. You can help each other get through the rough times. A = Anticipate and plan for the challenges you'll face while quitting. Most people who begin smoking again do so within the first 3 months. You can help yourself make it through by preparing ahead for common challenges, such as nicotine withdrawal and cigarette cravings. R = Remove cigarettes and other tobacco products from your home, car, and work. Throw away all your cigarettes (no emergency pack!), lighters, ashtrays, and matches. Wash your clothes and freshen up anything that smells like smoke. Shampoo your car, clean your drapes and carpet, and steam your furniture. T = Talk to your doctor about getting help to quit. Your doctor can prescribe medication to help with withdrawal and suggest other alternatives. If you can't see a doctor, you can get many products over the counter at your local pharmacy or grocery store, including the nicotine patch, nicotine lozenges, and nicotine gum. Resources for Quitting Smoking: <https://www.[place].gov/documents/[facility]/Quit_Tobacco_Resources_for_patients_313 480_7.pdf> Supplementation: Take recommended dosages of Vitamin D and Calcium to help fortify your bones and help them to heal. See your health maintenance packet for dosages and recommended levels. DVT/VTE prophylaxis: You will be given compression stockings from the hospital. Wear these daily for the first two weeks after surgery. You may take them off at night. You may be prescribed a medication to help thin your blood. Take this as directed. If you are not prescribed this medication, early and frequent ambulation has been shown to be the best prophylaxis to deep vein thrombosis and sequelae related to this event. Discharge Disposition: HOME SELF-CARE
[2023-03-11] MEDS: LACTATED RINGERS 1,000 ML IV SCH (11:44)
--- NOTE | 2023-03-11 14:36 | P.PN ---
Subjective Progress Note Date: 03/11/23 This morning patient states that she has neck pain which understand that and is expected after surgery. She is looking forward to going home. She says that she has been ambulating. Physical exam General: [Alert and oriented, well nourished, no acute distress]. Eye: [PERRL, EOMI, normal conjunctiva]. HENT: [Normocephalic, clear tympanic membranes, normal hearing, moist oral mucosa, no scleral icterus, no sinus tenderness]. Neck: [C-collar, restricted range of motion of the cervical spine]. Lungs: [Clear to auscultation and percussion, non-labored respiration]. Heart: [Normal rate, regular rhythm, no murmur, gallop or edema]. Abdomen: [Soft, non-tender, non-distended, normal bowel sounds, no masses]. Musculoskeletal: [Normal range of motion and strength, no tenderness or swelling]. Skin: [Skin is warm, dry and pink, no rashes or lesions]. Neurologic: [Awake, alert, and oriented X3, CN II-XII intact]. Psychiatric: [Cooperative, appropriate mood and affect]. Assessment and plan Anxiety Status post cervical total disc replacement I will resume patient's Xanax. Pain control and rest of the management as per primary team. Patient stable for discharge from medical standpoint. Objective - Vital Signs Vital signs: Vital Signs Temp 99.5 F 03/11/23 07:39 Pulse 70 03/11/23 07:39 Resp 19 03/11/23 07:39 BP 111/70 03/11/23 07:39 Pulse Ox 99 03/11/23 07:39 FiO2 Intake & Output 03/10/23 03/11/23 03/11/23 18:59 06:59 18:59 Intake Total 1250 Output Total 300 Balance 950 Weight 64.6 kg Intake: IV 1250 Output: Urine 250 Estimated Blood Loss 50 Other: Voiding Method Toilet Toilet # Voids 2 2
[2023-03-11 14:38] VITALS: BP 116/75; PULSE 71; RESP 18; TEMP 99.4
== END 2023-03-11 16:38 | disposition home or self-care (01) ==
LOC: OR 06:31 → 4SSUR 13:30 → OR 03-11 16:38
PROVIDERS: ATTEND Orthopaedic Surgery
DX: M50.122 Cervical disc disorder at C5-C6 level with radiculopathy (principal); M48.02 Spinal stenosis, cervical region; M47.22 Other spondylosis with radiculopathy, cervical region; J45.909 Unspecified asthma, uncomplicated; Z98.890 Other specified postprocedural states; Z98.51 Tubal ligation status; Z79.899 Other long term (current) drug therapy; Z87.891 Personal history of nicotine dependence; Z80.1 Family history of malignant neoplasm of trachea, bronchus and lung
CPT/HCPCS: 97161; 81025; 86900; 86901; 86850; 72040; 72125; 22856; 22858; L0120; C1713; J2250; J0330; J1100; J2765; J0690 ×2; J2405 ×2; J3010; J1170 ×3; J0131; J2704; J2001; J2371

== ENCOUNTER 2023-07-13 15:30 | Emergency (ER) | payer BC ==
[2023-07-13 15:42] VITALS: RESP 16; TEMP 97.8
[2023-07-13 16:08] LABS: Basophils # (A) 0.1 k/uL (0-0.2); Basophils % (A) 1 %; Eosinophils # (A) 0.3 k/uL (0-0.7); Eosinophils % (A) 4 %; HCT 40.7 % (34.0-46.0); HGB 14.6 gm/dL (11.4-16.0); Lymphocytes # (A) 1.5 k/uL (1.0-4.8); Lymphocytes % (A) 20 %; MCH 32.4 pg (25.0-35.0); MCHC 35.9 g/dL (31.0-37.0); MCV 90.1 fL (80.0-100.0); Mean Platelet Volume 7.3; Monocytes # (A) 0.4 k/uL (0-1.0); Monocytes % (A) 5 %; Neutrophils # (A) 5.1 k/uL (1.3-7.7); Neutrophils % (A) 67 %; Platelet Count 326 k/uL (150-450); RBC 4.51 m/uL (3.80-5.40); WBC 7.6 k/uL (3.8-10.6)
[2023-07-13 16:16] LABS: Mucus,Urine Few /hpf; RBC,Urine 13 /hpf (0-5); Squamous Epithelial Cell,Urine <1 /hpf (0-4); WBC,Urine <1 /hpf (0-5)
[2023-07-13 16:17] LABS: Appearance,Urine Clear (Clear); Bilirubin,Urine Negative (Negative); Blood,Urine Large (Negative); Color,Urine Yellow; Glucose,Urine (UA) Negative (Negative); Ketones,Urine Negative (Negative); Leukocyte Esterase,Urine Negative (Negative); Nitrite,Urine Negative (Negative); Protein,Urine Negative (Negative); Specific Gravity,Urine 1.025 (1.001-1.035); Urobilinogen,Urine <2.0 mg/dL (<2.0)
--- NOTE | 2023-07-13 16:17 | ED ---
Abdominal Pain HPI - General Chief Complaint: Abdominal Pain Stated Complaint: abd pain Time Seen by Provider: 07/13/23 16:16 Source: patient, RN notes reviewed Mode of arrival: ambulatory Limitations: no limitations - History of Present Illness Initial Comments: Patient is a 30-year-old female presented ER chief complaint abdominal pain. Patient states started earlier today. Patient denies any fevers, chills, nightsweats, nausea, or vomiting. She does state when she urinated she saw blood and does not believe it is her menstrual cycle. - Related Data Home Medications Medication Instructions Recorded Confirmed ALPRAZolam [Xanax] 0.5 mg PO DAILY PRN 03/10/23 03/10/23 Previous Rx's Medication Instructions Recorded Cyclobenzaprine [Flexeril] 5 mg PO TID #21 tablet 03/11/23 Gabapentin 300 mg PO TID #30 cap 03/11/23 HYDROcodone/APAP 5-325MG [Freedom 1 - 2 tab PO Q6HR PRN #36 tab 03/11/23 5-325] Indomethacin [Indocin] 50 mg PO BID 14 Days #56 capsule 03/11/23 Sennosides/Docusate Sodium [Senna 1 each PO DAILY #20 capsule 03/11/23 Plus 8.6-50 mg Softgel] cefaDROXiL [Duricef] 500 mg PO Q12HR 5 Days #10 cap 03/11/23 Albuterol Inhaler [Ventolin Hfa 1 - 2 puff INHALATION Q6H PRN #1 07/13/23 Inhaler] each Dicyclomine [Bentyl] 20 mg PO TID #30 tablet 07/13/23 Allergies Allergy/AdvReac Type Severity Reaction Status Date / Time No Known Allergies Allergy Verified 03/03/23 14:01 Review of Systems ROS Statement: Those systems with pertinent positive or pertinent negative responses have been documented in the HPI. ROS Other: All systems not noted in ROS Statement are negative. Past Medical History Past Medical History: Asthma, Osteoarthritis (OA) Past Surgical History: Orthopedic Surgery Additional Past Surgical History / Comment(s): cervical fusion Past Psychological History: No Psychological Hx Reported Smoking Status: Never smoker Past Alcohol Use History: None Reported Past Drug Use History: None Reported General Exam - General Exam Comments Initial Comments: Visual Physical Exam Vital signs reviewed General: Well-appearing, nontoxic, no acute distress. Head: Normocephalic, atraumatic Eyes: PERRLA, EOMI ENT: Airway patent Chest: Nonlabored breathing Skin: No visual rash, normal skin tone Neuro: Alert and oriented 3 Musculoskeletal: No gross abnormalities Limitations: no limitations Course Vital Signs 07/13/23 07/13/23 15:33 17:53 Temperature 97.8 F Pulse Rate 87 83 Respiratory 16 16 Rate Blood Pressure 132/72 125/79 O2 Sat by Pulse 97 98 Oximetry Medical Decision Making - Medical Decision Making I performed the quick note portion of the exam. Electronically signed by Shaan Barajas PA-C Was pt. sent in by a medical professional or institution (LUCILA Shook, ZONE MAINTENANCE TECHNICIAN, urgent care, hospital, or [facility]...) When possible be specific @ -No Did you speak to anyone other than the patient for history (EMS, parent, family, police, friend...)? What history was obtained from this source @ -No Did you review nursing and triage notes (agree or disagree)? Why? @ -I reviewed and agree with nursing and triage notes Were old charts reviewed (outside hosp., previous admission, EMS record, old EKG, old radiological studies, urgent care reports/EKG's, [facility] records)? Report findings @ -No old charts were reviewed Differential Diagnosis (chest pain, altered mental status, abdominal pain women, abdominal pain men, vaginal bleeding, weakness, fever, dyspnea, syncope, headache, dizziness, GI bleed, back pain, seizure, CVA, palpatations, mental health, musculoskeletal)? @ -Differential Abdominal Pain Women: Appendicitis, Cholecystitis, diverticulosis, ischemic bowel, pancreatitis, hepatitis, UTI, gastroenteritis, AAA, incarcerated hernia, bowel obstruction, constipation, inflammatory bowel, hepatitis, peptic ulcer disease, splenic infarction, perforated viscus, vulvi tis, ovarian torsion, PID, kidney stone, placenta abruption, this is not meant to be an all-inclusive list EKG interpreted by me (3pts min.). @ -None X-rays interpreted by me (1pt min.). @ -None done CT interpreted by me (1pt min.). @ -CT abdomen and pelvis shows findings consistent of infectious colitis. U/S interpreted by me (1pt. min.). @ -None done What testing was considered but not performed or refused? (CT, X-rays, U/S, labs)? Why? @ -None What meds were considered but not given or refused? Why? @ -I offered to give the patient pain medication but she refused. Did you discuss the management of the patient with other professionals (taniya acosta iSeemaeSeema Shook, PA, ZONE MAINTENANCE TECHNICIAN, lab, RT, psych nurse, social services coordinator, hazmat technician, teacher, prison officer, watch case polisher)? Give summary @ -No Was smoking cessation discussed for >3mins.? @ -No Was critical care preformed (if so, how long)? @ -No Were there social determinants of health that impacted care today? How? (Homelessness, low income, unemployed, alcoholism, drug addiction, transportation, low edu. Level, literacy, decrease access to med. care, correction, rehab)? @ -No Was there de-escalation of care discussed even if they declined (Discuss DNR or withdrawal of care, Hospice)? DNR status @ -No What co-morbidities impacted this encounter? (DM, HTN, Smoking, COPD, CAD, Cancer, CVA, ARF, Chemo, Hep., AIDS, mental health diagnosis, sleep apnea, morbid obesity)? @ -None Was patient admitted / discharged? Hospital course, mention meds given and route, prescriptions, significant lab abnormalities, going to OR and other pertinent info. @ -Discharge. Patient is a 38-year-old female presented ER chief complaint abdominal pain. Upon examination, patient's vitals are stable. Physical exam was significant for right-sided abdominal tenderness. Labs obtained in the ER were unremarkable. Urinalysis showed large blood with [address] abdomen and pelvis was significant for findings of infectious colitis. Patient will be discharged with a prescription for Bentyl and albuterol for her asthma. I discussed laboratory and imaging findings with the patient. I discussed with patient to encourage hydration and to monitor for worsening symptoms. I advised her to continue to take [id number] Tylenol and Motrin for fever control. Return parameters were discussed. Patient will be discharged in stable condition with follow-up to PCP. Patient's best understanding and agreement with care plan. Undiagnosed new problem with uncertain prognosis? @ -No Drug Therapy requiring intensive monitoring for toxicity (Heparin, Nitro, Insulin, Cardizem)? @ -No Were any procedures done? @ -No Diagnosis/symptom? @ -Colitis Acute, or Chronic, or Acute on Chronic? @ -Acute Uncomplicated (without systemic symptoms) or Complicated (systemic symptoms)? @ -Uncomplicated Side effects of treatment? @ -No Exacerbation, Progression, or Severe Exacerbation? @ -No Poses a threat to life or bodily function? How? (Chest pain, [place], [place], pneumonia, PE, COPD, DKA, ARF, appy, cholecystitis, CVA, Diverticulitis, Homicidal, Suicidal, threat to staff... and all critical care pts) @ -No - Lab Data Result diagrams: 07/13/23 15:39 07/13/23 15:39 Lab Results 07/13/23 07/13/23 07/13/23 Range/Units 15:37 15:37 15:39 WBC 7.6 (3.8-10.6) k/uL RBC 4.51 (3.80-5.40) m/uL Hgb 14.6 (11.4-16.0) gm/dL Hct 40.7 (34.0-46.0) % MCV 90.1 (80.0-100.0) fL MCH 32.4 (25.0-35.0) pg MCHC 35.9 (31.0-37.0) g/dL RDW 13.0 (11.5-15.5) % Plt Count 326 (150-450) k/uL MPV 7.3 Neutrophils % 67 % Lymphocytes % 20 % Monocytes % 5 % Eosinophils % 4 % Basophils % 1 % Neutrophils # 5.1 (1.3-7.7) k/uL Lymphocytes # 1.5 (1.0-4.8) k/uL Monocytes # 0.4 (0-1.0) k/uL Eosinophils # 0.3 (0-0.7) k/uL Basophils # 0.1 (0-0.2) k/uL Sodium (137-145) mmol/L Potassium (3.5-5.1) mmol/L Chloride (98-107) mmol/L Carbon Dioxide (22-30) mmol/L Anion Gap mmol/L BUN (7-17) mg/dL Creatinine (0.52-1.04) mg/dL Est GFR (CKD-EPI)AfAm (>60 ml/min/1.73 sqM) Est GFR (CKD-EPI)NonAf (>60 ml/min/1.73 sqM) Glucose (74-99) mg/dL Calcium (8.4-10.2) mg/dL Total Bilirubin (0.2-1.3) mg/dL AST (14-36) U/L ALT (4-34) U/L Alkaline Phosphatase (38-126) U/L Total Protein (6.3-8.2) g/dL Albumin (3.5-5.0) g/dL Amylase (30-110) U/L Lipase (23-300) U/L Urine Color Yellow Urine Appearance Clear (Clear) Urine pH 6.0 (5.0-8.0) Ur Specific Pike 1.025 (1.001-1.035) Urine Protein Negative (Negative) Urine Glucose (UA) Negative (Negative) Urine Ketones Negative (Negative) Urine Blood Large H (Negative) Urine Nitrite Negative (Negative) Urine Bilirubin Negative (Negative) Urine Urobilinogen <2.0 (<2.0) mg/dL Ur Leukocyte Esterase Negative (Negative) Urine RBC 13 H (0-5) /hpf Urine WBC <1 (0-5) /hpf Ur Squamous Epith Cells <1 (0-4) /hpf Urine Mucus Few H (None) /hpf Urine HCG, Qual Not Detected (Not Detectd) 07/13/23 Range/Units 15:39 WBC (3.8-10.6) k/uL RBC (3.80-5.40) m/uL Hgb (11.4-16.0) gm/dL Hct (34.0-46.0) % MCV (80.0-100.0) fL MCH (25.0-35.0) pg MCHC (31.0-37.0) g/dL RDW (11.5-15.5) % Plt Count (150-450) k/uL MPV Neutrophils % % Lymphocytes % % Monocytes % % Eosinophils % % Basophils % % Neutrophils # (1.3-7.7) k/uL Lymphocytes # (1.0-4.8) k/uL Monocytes # (0-1.0) k/uL Eosinophils # (0-0.7) k/uL Basophils # (0-0.2) k/uL Sodium 139 (137-145) mmol/L Potassium 3.9 (3.5-5.1) mmol/L Chloride 104 (98-107) mmol/L Carbon Dioxide 24 (22-30) mmol/L Anion Gap 11 mmol/L BUN 8 (7-17) mg/dL Creatinine 0.65 (0.52-1.04) mg/dL Est GFR (CKD-EPI)AfAm >90 (>60 ml/min/1.73 sqM) Est GFR (CKD-EPI)NonAf >90 (>60 ml/min/1.73 sqM) Glucose 125 H (74-99) mg/dL Calcium 9.0 (8.4-10.2) mg/dL Total Bilirubin 0.4 (0.2-1.3) mg/dL AST 25 (14-36) U/L ALT 16 (4-34) U/L Alkaline Phosphatase 74 (38-126) U/L Total Protein 7.4 (6.3-8.2) g/dL Albumin 4.4 (3.5-5.0) g/dL Amylase 81 (30-110) U/L Lipase 59 (23-300) U/L Urine Color Urine Appearance (Clear) Urine pH (5.0-8.0) Ur Specific Pike (1.001-1.035) Urine Protein (Negative) Urine Glucose (UA) (Negative) Urine Ketones (Negative) Urine Blood (Negative) Urine Nitrite (Negative) Urine Bilirubin (Negative) Urine Urobilinogen (<2.0) mg/dL Ur Leukocyte Esterase (Negative) Urine RBC (0-5) /hpf Urine WBC (0-5) /hpf Ur Squamous Epith Cells (0-4) /hpf Urine Mucus (None) /hpf Urine HCG, Qual (Not Detectd) - Radiology Data Radiology results: report reviewed, image reviewed Disposition Clinical Impression: Infectious colitis Disposition: HOME SELF-CARE Condition: Stable Instructions (If sedation given, give patient instructions): Colitis (ED) Additional Instructions: Please return to the Emergency Department if symptoms worsen or any other concerns. Prescriptions: Dicyclomine [Bentyl] 20 mg PO TID #30 tablet Albuterol Inhaler [Ventolin Hfa Inhaler] 1 - 2 puff INHALATION Q6H PRN #1 each PRN Reason: Shortness Of Breath Is patient prescribed a controlled substance at d/c from ED?: No Referrals: Samantha Neumann NPC [STAFF PHYSICIAN] - 1-2 days Time of Disposition: 18:20
[2023-07-13 16:29] LABS: ALT 16 U/L (4-34); AST 25 U/L (14-36); African American GFR (CKD) >90 (>60 ml/min/1.73 sqM); Albumin 4.4 g/dL (3.5-5.0); Alkaline Phosphatase 74 U/L (38-126); Amylase 81 U/L (30-110); Anion Gap 11 mmol/L; Blood Urea Nitrogen 8 mg/dL (7-17); Carbon Dioxide 24 mmol/L (22-30); Chloride 104 mmol/L (98-107); Glucose 125 mg/dL (74-99); Lipase 59 U/L (23-300); Non-African American GFR(CKD) >90 (>60 ml/min/1.73 sqM); Potassium 3.9 mmol/L (3.5-5.1); Sodium 139 mmol/L (137-145); Total Bilirubin 0.4 mg/dL (0.2-1.3); Total Protein 7.4 g/dL (6.3-8.2)
--- NOTE | 2023-07-13 17:10 | CT ---
EXAMINATION TYPE: CT abdomen pelvis w con DATE OF EXAM: 07/13/2023 COMPARISON: None HISTORY: RLQ pain CT DLP: 700.1 mGycm CONTRAST: CT scan of the abdomen and pelvis is performed without Oral Contrast and with IV Contrast, patient in jected with 100 mL of Isovue 300. FINDINGS: LUNG BASES-: No visible nodule. No infiltrate. LIVER/GB: No calcified gallstones. No space occupying hepatic lesion. Biliary tree is of normal ca liber. PANCREAS: No inflammation. No distinct mass. SPLEEN: No splenic enlargement. No lesion seen. ADRENALS: No nodule. No thickening. KIDNEYS/BLADDER: No hydronephrosis. No nephrolithiasis. No distinct renal mass. Urinary bladder g rossly unremarkable. BOWEL: Normal appendix. There Is wall thickening of the colon extending from the cecum to the splenic flexure felt to reflect nonspecific colitis likely infectious in nature although inflammatory as wel l as ischemic causes should be considered. Remaining colon and small bowel are of normal caliber. No evidence of abscess or free air. GENITAL ORGANS: No gross abnormality. Tubal ligation changes. LYMPH NODES: No greater than 1cm abdominal or pelvic lymph nodes are appreciated. AORTA: No significant abnormality. OSSEOUS STRUCTURES: No significant abnormality is seen. OTHER: No significant additional abnormality is seen. IMPRESSION: 1. Probable infectious colitis.
[2023-07-13 18:15] VITALS: BP 125/79; PULSE 83
== END 2023-07-13 18:48 | disposition home or self-care (01) ==
LOC: EC 15:30
DX: A09 Infectious gastroenteritis and colitis, unspecified (principal); J45.909 Unspecified asthma, uncomplicated
CPT/HCPCS: 36415; 80053; 82150; 83690; 85025; 81001; 81025; 74177; 99284; Q9967

== ENCOUNTER → 2024-07-13 | Outpatient (CLI) | payer BC ==
--- NOTE | 2024-07-15 20:51 | MR ---
EXAMINATION TYPE: MR cervical spine wo con DATE OF EXAM: 07/13/2024 1:40 PM COMPARISON: None. CLINICAL INDICATION: Female, 39 years old with history of M54.2, M54.12, neck pain, headaches, bilate ral arm radiculopathy. history of surgery TECHNIQUE: Multiplanar multiecho imaging on a 3.0 Michelle magnet is performed through the cervical spin e. IV Contrast: mL (None, if empty) FINDINGS: The craniovertebral junction is normal. Vertebral body alignment is normal. Anterior cervical fusion is present C4-C6. Susceptibility artifact causes limitation. Axial images ar e nondiagnostic through these levels. Spinal cord were visualized maintains normal signal. There are some portions posterior to the cervica l fusion which have limited evaluation. Alignment appears unremarkable. Posterior spinal lamellar charles e appears intact. Visualized cervical vertebra have preserved height. No suspicious kyphosis evident. IMPRESSION: 1. Very limited exam with portions which are nondiagnostic. 2. No obvious acute suspicious changes. [facility], , 07/15/2024 8:48 PM
== END | disposition home or self-care (01) ==
LOC: RADMRIMAIN 12:58
PROVIDERS: ATTEND Orthopaedic Surgery
DX: M54.12 Radiculopathy, cervical region (principal); M43.22 Fusion of spine, cervical region
CPT/HCPCS: 72141

== ENCOUNTER 2024-08-11 08:06 | Day surgery (SDC) | payer BC ==
[2024-08-11] MEDS: diazePAM 5 MG TAB PO STA (08:45)
[2024-08-11 09:28] VITALS: TEMP 98
--- NOTE | 2024-08-11 10:35 | FL ---
EXAMINATION TYPE: FL myelogram cervical DATE OF EXAM: 08/11/2024 10:22 AM COMPARISON: 07/13/2024 CLINICAL INDICATION:Female, 39 years old with history of M54.2 cervicalgia; FINDINGS: Informed consent was obtained including discussion of the risks and benefits. Timeout was taken per p jose carlosocol. Real-time fluoroscopy was performed to localize the lumbar spine access site. The patient wa s prepped and draped. Under sterile technique with local anesthesia a 22-gauge spinal needle was intr oduced into the arachnoid space with return of clear CSF. A total of 10 cc of Isovue-300 M was inject ed with appropriate opacification of the thecal sac. Total fluoroscopy time was 57 seconds Total fluoroscopic images 0. Radiographs taken: 7 DAP: Not Reported by machine [id number] IMPRESSION: Successful lumbar puncture with injection for CT myelogram. CT pending. [facility], , 08/11/2024 10:33 AM
--- NOTE | 2024-08-11 10:37 | CT ---
EXAMINATION TYPE: CT cervical spine w con DATE OF EXAM: 08/11/2024 COMPARISON: CT cervical spine March 10, 2023 HISTORY: cervicalgia CT DLP: 422 mGycm. Automated Exposure Control for Dose Reduction was Utilized. TECHNIQUE: CT scan of the cervical spine is obtained after intrathecal contrast injection, axial ty ges are obtained, sagittal and coronal reformatted images are also reviewed. FINDINGS: Cervical spine is visualized in its entirety from C1 through upper thoracic levels, demonst rates persistent stable and satisfactory alignment. Prevertebral soft tissue appears within normal l imits. The C1-C2 articulation is within normal limits on the coronal images. Persistent surgical klaudia nges with metallic hardware at the endplates at C4-C5 and C5-C6 level. This causes streak artifact ma bette evaluation suboptimal. Vertebral body heights and disc space heights are satisfactory above and below the surgical levels. Satisfactory contrast opacification of the spinal canal. Review of axial images shows obvious new large disc herniation to cause significant spinal canal sten osis above and below the surgical levels. Visualized lung apices are clear. IMPRESSION: Postsurgical changes C4-C5 and C5-C6 levels redemonstrated. Alignment stable and satisfac tory. No new Large disc herniation is present. [facility], , 08/11/2024 10:35 AM
[2024-08-11] MEDS: HYDROcodone/APAP 5-325MG 1 EACH TAB PO PRN (10:41)
[2024-08-11 11:27] VITALS: RESP 16
[2024-08-11 14:05] VITALS: BP 100/57; PULSE 70
== END 2024-08-11 14:04 | disposition home or self-care (01) ==
LOC: RADPROMAIN 08:06
PROVIDERS: ATTEND Orthopaedic Surgery
DX: M54.12 Radiculopathy, cervical region (principal); Z98.1 Arthrodesis status
CPT/HCPCS: 62302; 72126; Q9967

== ENCOUNTER → 2024-10-28 | Outpatient (CLI) | payer BC | END | disposition home or self-care (01) | LOC: RADECHMAIN 13:22 | PROVIDERS: ATTEND Family Medicine | DX: Z53.9 Procedure and treatment not carried out, unspecified reason (principal) | CPT/HCPCS: 93225 ==